=== PATIENT | male | born 1960 | race Caucasian/White ===

== ENCOUNTER 2023-12-18 08:33 | Emergency (ER) | payer OTHER ==
[~2023-12-18] VITALS: Ht 170.2 cm; Wt 69.2 kg
[2023-12-18] MEDS ORDERED: CARVEDILOL25 MG PO (08:49)
[2023-12-18] MEDS ORDERED: ZESTRIL40 MG PO (08:51)
[2023-12-18] MEDS ORDERED: LIPITOR20 MG PO (08:52)
[2023-12-18] MEDS ORDERED: FOLIC ACID0.8 MG PO (08:53)
[2023-12-18] MEDS ORDERED: NORVASC5 MG PO (08:53)
[2023-12-18] MEDS ORDERED: IRON325 M1 PO (08:54)
[2023-12-18] MEDS ORDERED: BAYER CHEWABLE81 MG PO (08:54)
[2023-12-18 09:58] LABS: BILIRUBIN, URINE NEGATIVE (negative); BLOOD/HGB, URINE MODERATE (Negative); KETONE, URINE NEGATIVE (Negative); LEUK ESTERASE, URINE MODERATE (negative); NITRITE, URINE NEGATIVE (negative)
[2023-12-18 10:04] LABS: WHITE BLOOD CELLS, URINE 41-50 /HPF (0-5)
[2023-12-18 10:05] LABS: BACTERIA, URINE 3+ /hpf (negative); EPITHELIAL CELLS, URINE 0 /lpf (0-1+); REFLEX CULTURE, URINE Yes (No)
[2023-12-18 11:08] LABS: BASOPHILS 0.3 % (0-2); EOSINOPHILS 0.4 % (0-6); HEMATOCRIT 34.1 % (35.0-50.0); HEMOGLOBIN 11.2 g/dL (12.0-18.0); LYMPHOCYTES 7.2 % (24-44); MCH 29.5 (27-36); MCHC 32.8 g/dl (30-36); MONOCYTES 6.8 % (0-12); NEUTROPHILS 85.3 % (39-80); PLATELET COUNT 213 K/uL (140-440); RBC 3.78 M/ul (4.3-5.7); RDW 14.9 (10.5-15.0)
[2023-12-18 11:24] LABS: ALBUMIN 3.1 g/dL (3.4-5.0); ALBUMIN/GLOBULIN RATIO 0.84 (1.1-2.4); ANION GAP 12.7 (7-21); BILIRUBIN, TOTAL 0.6 ng/dL (0.2-1.0); BUN/CREATININE RATIO 20.68 (6.0-28.6); CALCIUM 8.6 mg/dL (8.5-10.1); CREATININE, SERUM 1.16 mg/dL (0.70-1.30); POTASSIUM 3.7 mmol/L (3.5-5.1); PROTEIN, TOTAL 6.8 g/dL (6.4-8.2)
[2023-12-18 11:28] LABS: LACTIC ACID, BLOOD 0.8 mmol/L (0.4-2.0)
[2023-12-18] MEDS ORDERED: CEFDINIR300 MG PO (13:56)
[2023-12-18 14:15] VITALS: BP 109/71
== END 2023-12-18 14:15 | disposition home or self-care (01) ==
LOC: ED 08:33
PROVIDERS: Emergency Medicine
DX: N35.919 Unspecified urethral stricture, male, unspecified site (principal); N39.0 Urinary tract infection, site not specified; I25.2 Old myocardial infarction; Z79.82 Long term (current) use of aspirin; Z79.899 Other long term (current) drug therapy
CPT/HCPCS: 36415; 51702; 51798; 80053; 81001; 83605; 85025; 87077; 87088; 87186; 99284-25; J0696; J7121